=== PATIENT | male | born 1945 | race Caucasian/White ===

== ENCOUNTER 2018-08-15 06:21 | Inpatient (IN) | payer OTHER ==
[~2018-08-15] VITALS: Ht 160 cm; Wt 60.4 kg
[2018-08-15] VITALS (10 sets, daily range): BP systolic 94–159; BP diastolic 49–98
[2018-08-15] MEDS ORDERED: NITROGLYCERIN 50MG PREMIX 250 ML IV ONE (06:36)
[2018-08-15] MEDS ORDERED: ASPIRIN 81MG TABLET PO ONE (06:45)
[2018-08-15 06:47] LABS: BASOPHILS % 0.4 % (0.0-2.0); EOSINOPHILS % 0.4 % (0.0-5.0); HEMOGLOBIN. 16.5 g/dL (14.0-18.0); LYMPHOCYTES % 13.9 % (20.0-50.0); MEAN CORPUSCULAR HEMOGLOBIN 30.5 pg (28.0-32.0); MEAN CORPUSCULAR VOLUME 90.5 fL (80.0-94.0); MEAN PLATELET VOLUME 8.3 fl (7.4-10.4); MONOCYTES % 4.8 % (2.0-8.0); NEUTROPHILS % 80.5 % (40.0-76.0); PLATELET 228 x1000/uL (130-400); RED BLOOD CELL COUNT 5.41 mill/uL (4.7-6.1); RED CELL DISTRIBUTION WIDTH 13.7 % (11.6-14.6)
[2018-08-15 06:50] LABS: CHLORIDE 107 mEq/L (98-107)
[2018-08-15] MEDS ORDERED: DOCUSATE SODIUM 100MG CAPSULE PO PRN (09:15)
[2018-08-15] MEDS ORDERED: NITROGLYCERIN 0.4MG TABLET SL SL PRN (09:15)
[2018-08-15] MEDS ORDERED: IPRATROPIUM/ALBUTEROL 0.5-3(2.5)MG/3ML NEB INH PRN (09:15)
[2018-08-15] MEDS ORDERED: LORAZEPAM 0.5MG TABLET PO PRN (09:15)
[2018-08-15] MEDS ORDERED: ONDANSETRON HCL 4MG/2ML INJ IV PRN (09:15)
[2018-08-15] MEDS ORDERED: MAGNESIUM/ALUMINUM HYDROXIDE/SIMETHICONE 30ML UDC PO PRN (09:15)
[2018-08-15] MEDS ORDERED: CLONIDINE 0.1MG TABLET PO PRN (09:15)
[2018-08-15] MEDS ORDERED: DIPHENHYDRAMINE 50MG/ML VIAL IV PRN (09:15)
[2018-08-15] MEDS ORDERED: KETOROLAC 15MG/ML VIAL IV PRN (09:15)
[2018-08-15] MEDS ORDERED: ACETAMINOPHEN 325MG TABLET PO PRN (09:15)
[2018-08-15] MEDS ORDERED: GUAIFENESIN 200MG/10ML SUGAR FREE UDC PO PRN (09:15)
[2018-08-15 09:21] LABS: BG BASE EXCESS -2.8 mmol/L (-2.0-2.0); BG BILEVEL POS AIRWAY PRESSURE 15/5; BG CARBOXYHEMOGLOBIN 1.7 % (0.5-1.5); BG DEOXYHEMOGLOBIN 0.9 % (0.0-5.0); BG FRACTION INSPIRED OXYGEN 60; BG HCO3 ACT 21.1 mmol/L (22.0-26.0); BG METHEMOGLOBIN 0.4 % (0.0-1.5); BG OXYGEN SATURATION 99.1 % (92.0-98.5); BG PCO2 34.6 mmHg (35.0-45.0); BG PH 7.404 (7.350-7.450); BG PO2 169.2 mmHg (75.0-100.0); BG SAMPLE SITE RIGHT RADIAL; BG TOTAL HEMOGLOBIN 15.4 g/dL (12.0-18.0); BG VENT MODE MASK - BIPAP; BG VENT RATE 16 set
[2018-08-15 09:42] LABS: D-DIMER 1.09 mg/L FEU (<0.50); PARTIAL THROMBOPLASTIN TIME 29.4 sec (23.4-31.0); PROTHROMBIN TIME 10.4 sec (9.1-11.1)
[2018-08-15] MEDS ORDERED: ENOXAPARIN 40MG/0.4ML SYR SUBCUT SCH (11:00)
[2018-08-15 11:52] LABS: *COCAINE SCREEN URINE NEGATIVE (NEGATIVE)
[2018-08-15 11:53] LABS: *BARBITURATES SCREEN URINE NEGATIVE (NEGATIVE); CANNABINOID URINE SCREEN NEGATIVE (NEGATIVE); METHADONE URINE SCREEN NEGATIVE (NEGATIVE); OPIATES URINE SCREEN NEGATIVE (NEGATIVE); PHENCYCLIDINE URINE SCREEN NEGATIVE (NEGATIVE)
[2018-08-15 11:54] LABS: *AMPHETAMINES SCREEN URINE NEGATIVE (NEGATIVE); *BENZODIAZEPINES SCREEN URINE NEGATIVE (NEGATIVE)
[2018-08-15] MEDS ORDERED: INFLUENZA VIRUS VACCINE(AFLURIA) 0.5ML SYR IM ONE (12:00)
[2018-08-15] MEDS ORDERED: PNEUMOCOCCAL 23-VAL P-SAC VAC 0.5 ML IM ONE (12:00)
[2018-08-15] MEDS ORDERED: IPRATROPIUM/ALBUTEROL 0.5-3(2.5)MG/3ML NEB HHN SCH (12:00)
[2018-08-15] MEDS: LEVOFLOXACIN 500MG PREMIX 100 ML IV SCH (13:34)
[2018-08-15] MEDS: LISINOPRIL 20MG TABLET PO SCH ×2 (13:37→21:00)
[2018-08-15] MEDS: METOPROLOL TARTRATE 25MG TABLET PO SCH ×2 (13:37→21:00)
[2018-08-15] MEDS: GUAIFENESIN/DM 600MG/30MG ER TAB 12HR PO SCH ×2 (13:37→21:36)
[2018-08-15] MEDS ORDERED: METHYLPREDNISOLONE SOD SUCC 125 MG/2 ML VIAL IV SCH (14:00)
[2018-08-15 16:16] LABS: CREATINE KINASE MB FRACTION 7.3 ng/mL (0.5-3.6)
[2018-08-15] MEDS: FUROSEMIDE 40MG/4ML VIAL IVP SCH (18:09)
[2018-08-15] MEDS ORDERED: DEXTROSE 50% WATER 50ML SYRINGE IV PRN (18:15)
[2018-08-15] MEDS: IPRATROPIUM/ALBUTEROL 0.5-3(2.5)MG/3ML NEB INH SCH (20:27)
[2018-08-15] MEDS ORDERED: ENOXAPARIN 60MG/0.6ML SYR SUBCUT SCH (21:00)
[2018-08-15] MEDS ORDERED: ZOLPIDEM TARTRATE 5MG TABLET PO PRN (21:00)
[2018-08-15] MEDS: INSULIN LISPRO 100 UNITS/ML SUBCUT SCH (21:00)
[2018-08-15] MEDS: METHYLPREDNISOLONE SOD SUCC 40 MG/ML VIAL IV SCH (21:37)
[2018-08-15] MEDS: BLOOD SUGAR DIAGNOSTIC STRIP TEST SCH (21:37)
[2018-08-16] VITALS (16 sets, daily range): BP systolic 97–155; BP diastolic 49–86
[2018-08-16] MEDS: IPRATROPIUM/ALBUTEROL 0.5-3(2.5)MG/3ML NEB INH SCH ×6 (00:30→20:13)
[2018-08-16 00:39] LABS: CREATINE KINASE MB FRACTION 5.7 ng/mL (0.5-3.6)
[2018-08-16] MEDS: FUROSEMIDE 40MG/4ML VIAL IVP SCH ×2 (06:25→09:33)
[2018-08-16] MEDS: METHYLPREDNISOLONE SOD SUCC 40 MG/ML VIAL IV SCH ×2 (06:25→14:23)
[2018-08-16] MEDS: BLOOD SUGAR DIAGNOSTIC STRIP TEST SCH ×4 (06:27→21:25)
[2018-08-16 06:51] LABS: HEMOGLOBIN. 15.7 g/dL (14.0-18.0); MEAN CORPUSCULAR HEMOGLOBIN 30.7 pg (28.0-32.0); MEAN CORPUSCULAR VOLUME 90.2 fL (80.0-94.0); MEAN PLATELET VOLUME 8.8 fl (7.4-10.4); PLATELET 208 x1000/uL (130-400); RED CELL DISTRIBUTION WIDTH 13.7 % (11.6-14.6)
[2018-08-16 07:00] LABS: CHLORIDE 106 mEq/L (98-107)
[2018-08-16] MEDS: INSULIN LISPRO 100 UNITS/ML SUBCUT SCH ×4 (07:20→21:00)
[2018-08-16] MEDS ORDERED: ASPIRIN 325MG EC TABLET PO SCH (09:00)
[2018-08-16 09:09] LABS: BG BASE EXCESS -2.1 mmol/L (-2.0-2.0); BG CARBOXYHEMOGLOBIN 0.7 % (0.5-1.5); BG DEOXYHEMOGLOBIN 5.6 % (0.0-5.0); BG FRACTION INSPIRED OXYGEN 32; BG HCO3 ACT 21.9 mmol/L (22.0-26.0); BG METHEMOGLOBIN 0.3 % (0.0-1.5); BG OXYGEN SATURATION 94.3 % (92.0-98.5); BG OXYHEMOGLOBIN 93.4 % (94.0-97.0); BG PCO2 35.6 mmHg (35.0-45.0); BG PH 7.406 (7.350-7.450); BG PO2 72.1 mmHg (75.0-100.0); BG SAMPLE SITE RIGHT RADIAL; BG TOTAL HEMOGLOBIN 16.9 g/dL (12.0-18.0); BG VENT MODE NASAL CANNULA
[2018-08-16] MEDS: ENOXAPARIN 40MG/0.4ML SYR SUBCUT SCH (09:32)
[2018-08-16] MEDS: GUAIFENESIN/DM 600MG/30MG ER TAB 12HR PO SCH ×2 (09:33→21:24)
[2018-08-16] MEDS: POTASSIUM CHLORIDE 20MEQ TABLET SR PO SCH (09:33)
[2018-08-16] MEDS: METOPROLOL TARTRATE 25MG TABLET PO SCH ×2 (09:33→21:00)
[2018-08-16] MEDS: LISINOPRIL 20MG TABLET PO SCH ×2 (09:34→21:00)
[2018-08-16] MEDS: ASPIRIN 81MG EC TABLET PO SCH (09:34)
[2018-08-16 11:27] LABS: PLATELET ESTIMATE NORMAL
[2018-08-16] MEDS: LEVOFLOXACIN 500MG PREMIX 100 ML IV SCH (14:23)
[2018-08-16] MEDS: PREDNISONE 20MG TABLET PO SCH (16:22)
[2018-08-16] MEDS: BUDESONIDE 0.5MG/2ML NEB HHN SCH (16:53)
[2018-08-17] VITALS (11 sets, daily range): BP systolic 101–143; BP diastolic 56–82
[2018-08-17] MEDS: BUDESONIDE 0.5MG/2ML NEB HHN SCH ×3 (03:47→20:43)
[2018-08-17] MEDS: IPRATROPIUM/ALBUTEROL 0.5-3(2.5)MG/3ML NEB INH SCH ×6 (03:48→20:44)
[2018-08-17] MEDS: BLOOD SUGAR DIAGNOSTIC STRIP TEST SCH ×4 (05:43→20:54)
[2018-08-17] MEDS: INSULIN LISPRO 100 UNITS/ML SUBCUT SCH ×4 (07:20→20:54)
[2018-08-17] MEDS: PREDNISONE 20MG TABLET PO SCH ×2 (09:00→17:29)
[2018-08-17] MEDS ORDERED: REGADENOSON 0.4 MG/5 ML IV ONE ×2 (09:00→10:10)
[2018-08-17] MEDS: ENOXAPARIN 40MG/0.4ML SYR SUBCUT SCH (09:00)
[2018-08-17] MEDS: FUROSEMIDE 40MG/4ML VIAL IVP SCH (09:15)
[2018-08-17] MEDS: LISINOPRIL 20MG TABLET PO SCH ×2 (11:04→20:54)
[2018-08-17] MEDS: POTASSIUM CHLORIDE 20MEQ TABLET SR PO SCH (11:04)
[2018-08-17] MEDS: ASPIRIN 81MG EC TABLET PO SCH (11:04)
[2018-08-17] MEDS: CARVEDILOL 6.25 MG TABLET PO SCH ×2 (11:25→20:54)
[2018-08-17] MEDS: CLOPIDOGREL 75MG TABLET PO SCH (11:28)
[2018-08-17] MEDS: GUAIFENESIN/DM 600MG/30MG ER TAB 12HR PO SCH ×2 (11:28→20:53)
[2018-08-17] MEDS: LEVOFLOXACIN 500MG PREMIX 100 ML IV SCH (14:07)
[2018-08-17] MEDS ORDERED: ATORVASTATIN CALCIUM 40MG TABLET PO SCH (21:00)
[2018-08-18] VITALS (10 sets, daily range): BP systolic 96–133; BP diastolic 44–76
[2018-08-18] MEDS: IPRATROPIUM/ALBUTEROL 0.5-3(2.5)MG/3ML NEB INH SCH ×5 (00:55→16:20)
[2018-08-18] MEDS: BLOOD SUGAR DIAGNOSTIC STRIP TEST SCH ×2 (06:12→11:53)
[2018-08-18 06:47] LABS: HEMATOCRIT. 46.7 % (42.0-52.0); HEMOGLOBIN. 15.7 g/dL (14.0-18.0); MEAN CORPUSCULAR HEMOGLOBIN 30.3 pg (28.0-32.0); MEAN CORPUSCULAR VOLUME 90.1 fL (80.0-94.0); MEAN PLATELET VOLUME 8.6 fl (7.4-10.4); PLATELET 220 x1000/uL (130-400); RED BLOOD CELL COUNT 5.18 mill/uL (4.7-6.1); RED CELL DISTRIBUTION WIDTH 13.8 % (11.6-14.6)
[2018-08-18 07:15] LABS: CHLORIDE 108 mEq/L (98-107)
[2018-08-18] MEDS: INSULIN LISPRO 100 UNITS/ML SUBCUT SCH ×2 (07:20→12:14)
[2018-08-18] MEDS ORDERED: PREDNISONE 20MG TABLET PO SCH (07:20)
[2018-08-18] MEDS: BUDESONIDE 0.5MG/2ML NEB HHN SCH (07:43)
[2018-08-18] MEDS: GUAIFENESIN/DM 600MG/30MG ER TAB 12HR PO SCH (08:47)
[2018-08-18] MEDS: CLOPIDOGREL 75MG TABLET PO SCH (08:48)
[2018-08-18] MEDS: POTASSIUM CHLORIDE 20MEQ TABLET SR PO SCH (08:48)
[2018-08-18] MEDS: LISINOPRIL 20MG TABLET PO SCH (08:48)
[2018-08-18] MEDS: CARVEDILOL 6.25 MG TABLET PO SCH (08:48)
[2018-08-18] MEDS: ASPIRIN 81MG EC TABLET PO SCH (08:48)
[2018-08-18] MEDS: ENOXAPARIN 40MG/0.4ML SYR SUBCUT SCH (08:49)
[2018-08-18] MEDS: FUROSEMIDE 40MG/4ML VIAL IVP SCH (08:49)
[2018-08-18 09:58] LABS: PLATELET ESTIMATE NORMAL
[2018-08-18] MEDS: LEVOFLOXACIN 500MG PREMIX 100 ML IV SCH (14:42)
== END 2018-08-18 17:50 | disposition home or self-care (01) | DRG 291 ==
LOC: ER 06:37 → 3WST 07:08 → EDBD 07:08 → EDBEDREQ 07:10 → EDBEDREQTM 07:10 → ENRESERV 08:33 → CANRESERV 08:33 → EDBEDREQSVC 09:14 → ENRESERV 10:20 → 3WST 11:09
PROVIDERS: ADMIT Internal Medicine; ATTEND Internal Medicine
PROC: 5A09457 Assistance with Respiratory Ventilation, 24-96 Consecutive Hours, Continuous Positive Airway Pressure (ICD-10-PCS; principal; 2018-08-15)
PROC: 5A09357 Assistance with Respiratory Ventilation, Less than 24 Consecutive Hours, Continuous Positive Airway Pressure (ICD-10-PCS; 2018-08-18)
DX: I11.0 Hypertensive heart disease with heart failure (principal); J96.00 Acute respiratory failure, unspecified whether with hypoxia or hypercapnia; J44.1 Chronic obstructive pulmonary disease with (acute) exacerbation; T38.0X5A Adverse effect of glucocorticoids and synthetic analogues, initial encounter; I50.43 Acute on chronic combined systolic (congestive) and diastolic (congestive) heart failure; I25.5 Ischemic cardiomyopathy; F17.210 Nicotine dependence, cigarettes, uncomplicated; H91.90 Unspecified hearing loss, unspecified ear; I25.2 Old myocardial infarction; Z71.6 Tobacco abuse counseling; Y92.89 Other specified places as the place of occurrence of the external cause
CPT/HCPCS: 36415; 36600; 71045; 78452; 80048; 80305; 82375; 82550; 82553; 82805; 82962; 83036; 83880; 84484; 85379; 87804; 93005; 93017; 93306; 93970; 94640; 94660; 97162; 99285; 99406; A9500; J1650; J1815; J1940; J1956; J2785; J2920; J2930; J3490; J7050; J7512; J7620; J7626